=== PATIENT | male | born 1975 | race Caucasian/White ===

== ENCOUNTER → 2020-01-18 07:23 | Outpatient (CLI) | payer MEDICAID, SELFPAY ==
--- NOTE | 2020-01-18 07:27 | MRI_ITS ---
STUDY: MRI LEFT KNEE WITH AND WITHOUT CONTRAST REASON FOR EXAM: Male, 44 years old. Left knee pain. Effusion. Soft tissue mass posteriorly. TECHNIQUE: Standardized fat and water weighted pulse sequences were obtained in all 3 orthogonal planes. Postcontrast evaluation with 20 mL gadolinium. COMPARISON: None. FINDINGS: Patellofemoral articular cartilage is preserved. Medial compartment articular cartilage is preserved. Lateral compartment grade 2 cartilage loss. No acute fracture. No acute dislocation. No acute bone destruction. Medial meniscus intact. Lateral meniscus anterior horn/root ligament degeneration with degenerative tear and midline cyst formation measuring 1.2 cm (sagittal images 16 through 20 series 4). Large volume joint effusion. Large multiseptated nonenhancing popliteal cyst with minimal leaking. Mild soft tissue swelling. Normal medial collateral ligamentous complex (MCL). Normal distal semimembranosus, gracilis and semitendinosus tendons. Normal proximal tibiofibular articulation. Normal lateral collateral (fibular) ligament. Normal popliteus tendon. Normal biceps femoris tendon. Normal anterior cruciate ligament (ACL). Normal posterior cruciate ligament (PCL). Normal medial and lateral patellar retinaculum. Normal quadriceps tendon. Normal patellar tendon. Normal Hoffa''s fat pad. MRI/Lower Ext Joint Only W/WO Cont IMPRESSION: Large multiseptated minimally leaking popliteal cyst Lateral meniscus anterior horn/root degeneration with tear and midline ganglion cyst formation Lateral compartment mild cartilage loss Large volume joint effusion with mild soft tissue swelling Electronically Signed: Jamal Weathers DO at 11:07 EDT Tel , Service support ,
== END ==
PROVIDERS: PCP Family Medicine; Referring Provider Physician Assistant Surgical; Visit Provider Physician Assistant Surgical
DX: S83.282A Other tear of lateral meniscus, current injury, left knee, initial encounter (principal); X58.XXXA Exposure to other specified factors, initial encounter; M71.22 Synovial cyst of popliteal space [Baker], left knee; M67.462 Ganglion, left knee
CPT/HCPCS: 73723; A9575

== ENCOUNTER → 2021-06-21 | Outpatient (REF) | payer SELFPAY | END | disposition home or self-care (01) | LOC: OLS.AHA 04:08 | PROVIDERS: PCP Family Medicine | DX: Z79.899 Other long term (current) drug therapy (principal) | CPT/HCPCS: 82140 ==

== ENCOUNTER → 2021-09-20 | Outpatient (REF) | payer SELFPAY | END | disposition home or self-care (01) | LOC: OLS.AHA 04:49 | PROVIDERS: PCP Family Medicine; Visit Provider Family Medicine | DX: E72.20 Disorder of urea cycle metabolism, unspecified (principal); E87.1 Hypo-osmolality and hyponatremia | CPT/HCPCS: 82140 ==

== ENCOUNTER → 2025-01-10 | Outpatient (CLI) | payer MEDICAID, SELFPAY ==
[2025-01-10 17:19] LABS: Hematocrit 32.9 % (40-54); Hemoglobin 11.6 g/dL (13.0-16.5); Mean Corp Hgb Conc 35.3 g/dL (32-36); Mean Corpuscular Volume 94.0 fL (80-94); Mean Platelet Vol. 10.5 fl (6.2-12.0); Platelet Count 349 K/mm3 (150-450); RBC Distribution Width CV 13.2 % (11.6-14.6); RBC Distribution Width SD 45.8 fl (35.1-43.9); Red Blood Count 3.50 M/mm3 (4.6-6.2); White Blood Count 5.1 K/mm3 (4.4-11.0)
[2025-01-10 17:35] LABS: Anion Gap 10 (5-15); BUN 8 mg/dL (4-19); BUN/Creat Ratio 9.6 RATIO (10-20); Calcium,Total 9.4 mg/dL (7.6-11.0); Carbon Dioxide 22.4 mmol/L (21.0-32.0); Chloride 96 mmol/L (98-108); Cholesterol 118 mg/dL (<=200); Free T3 2.6 pg/mL (2.18-3.98); Glucose 81 mg/dL (70-99); Low Density Lipoprotein Calc. 76 mg/dL; Potassium 4.9 mmol/L (3.3-5.1); Triglycerides 156 mg/dL; Very Low Density Lipoprotein 31 mg/dL (5-40); Vitamin D,25 Hydroxy 59.2 ng/mL (30-100); cholesterol:hdl ratio screen 10.44
--- OUTSIDE RECORDS SUMMARY | 2025-01-10 23:34 | XMS RPT_ITS | CCD ---
Author Organization [facility] Care Team Providers Care Manager Utilization Review Name Role Phone TSERING TENORIO Referring Unavailable TSERING TENORIO Attending Unavailable TSERING TENORIO Admitting Unavailable Allergies Allergy Classification Reported Allergen(s) Allergy Type Date of Onset Reaction(s) Facility (3 sources) Aspirin; Translations: [ASPIRIN] Drug Allergy 09-17-2015 Other [facility] Repository Medications Current Medications Medication Drug Class(es) Dates Sig (Normalized) Sig (Original) acetaminophen 500 mg oral tablet (2 sources) Start: 09-17-19 16 take 650 mg by mouth every four hours as needed Acetaminophen Active 650 MG PO EVERY 4 HOURS NEEDED September 17, 2015 10:57pm amLODIPine 5 mg oral tablet (2 sources) Dihydropyridine Calcium Channel Jermaine Start: 09-18-19 16 take 5 mg by mouth once daily Amlodipine Active 5 MG PO DAILY September 18, 2015 1:14pm atorvastatin 20 mg oral tablet (2 sources) HMG-CoA Reductase Inhibitor Start: 09-17-19 16 take 20 mg by mouth at bedtime Atorvastatin Active 20 MG PO AT BEDTIME September 17, 2015 10:52pm benztropine mesylate 2 mg oral tablet (2 sources) Anticholinergic, Antihistamine Start: 09-17-19 16 take 1 mg by mouth three times daily Benztropine Active 1 MG PO THREE TIMES A DAY September 17, 2015 10:52pm cholecalciferol 0.25 mg oral tablet (2 sources) Vitamin D Start: 09-17-19 16 Cholecalciferol (Vitamin D3) Active 73951 UNIT PO September 17, 2015 10:52pm diphenhydrAMINE hydrochloride 25 mg oral capsule (2 sources) Histamine-1 Receptor Antagonist Start: 09-17-19 16 Diphenhydramine Hcl (Banophen) 25 MG capsule Active 50 MG PO 3 TIMES DAILY NEEDED September 17, 2015 10:57pm LORazepam 2 mg oral tablet (2 sources) Benzodiazepine Start: 09-17-19 16 take 1 tablet by mouth every four hours as needed Lorazepam (Ativan) 2 MG tablet Active 2 MG PO EVERY 4 HOURS NEEDED September 17, 2015 10:57pm medroxyPROGESTERone acetate 5 mg oral tablet (2 sources) Progestin Start: 09-17-19 16 Medroxyprogesterone (Provera) 5 MG tablet Active 5 MG PO September 17, 2015 10:52pm metoprolol tartrate 25 mg oral tablet (2 sources) beta-Adrenergic Jermaine Start: 09-17-19 16 take 25 mg by mouth twice daily Metoprolol Tartrate Active 25 MG PO TWICE A DAY September 17, 2015 10:52pm QUEtiapine 400 mg oral tablet (2 sources) Atypical Antipsychotic Start: 09-17-19 16 take 1 tablet by mouth at bedtime Quetiapine (Seroquel) 400 MG tablet Active 400 MG PO AT BEDTIME September 17, 2015 10:52pm raNITIdine 150 mg oral tablet (2 sources) Histamine-2 Receptor Antagonist Start: 09-17-19 16 take 1 tablet by mouth twice daily Ranitidine (Zantac) 150 MG tablet Active 150 MG PO TWICE A DAY September 17, 2015 10:52pm divalproex sodium 125 mg delayed release oral capsule (4 sources) Mood Stabilizer, Anti-epileptic Agent Start: 09-17-19 16 take 500 mg by mouth twice daily Divalproex Active 500 MG PO TWICE A DAY September 17, 2015 10:52pm Start: 09-17-2015 take 1500 mg by mouth at bedti nc Divalproex Active 1500 MG PO AT BEDTIME September 17, 2015 10:52pm zolpidem tartrate 10 mg oral tablet (2 sources) gamma-Aminobutyric Acid-ergic Agonist Start: 09-17-2015 Zolpidem (Ambien) 10 MG tablet Active 10 MG PO September 17, 2015 10:52pm Completed/Discontinued Medications Medication Drug Class(es) Dates Sig (Normalized) Sig (Original) hydroCHLOROthiazide 25 mg oral tablet (2 sources) Thiazide Diuretic Start: 6 End: 6 take 12.5 mg by mouth twice daily at mealtime Hydrochlorothiazide Discontinued 12.5 MG PO TWICE DAILY WITH MEALS September 17, 2015 10:52pm September 18, 2015 1:14pm Problems Problem Classification Problem Date Documented Da te Episodic/Chronic Delirium, dementia, and amnestic and other cognitive disorders (2 sources) Dementia; Translations: [Unspecified dementia without behavioral disturbance] Chronic Disorders of lipid metabolism (2 sources) Hyperlipidemia; Translations: [Hyperlipidemia, unspecified] Chronic Fluid and electrolyte disorders (2 sources) Hypo-osmolality and or hyponatremia; Translations: [Hypo-osmolality and hyponatremia] Episodic Intracranial injury (2 sources) Traumatic brain injury; Translations: [Unspecified intracranial injury with loss of consciousness of unspecified duration, initial encounter] Episodic Results Test Name Value Interpretation Reference Range Facil ity Ammoniaon 12-24-2021 Ammonia (P) [Moles/Vol] 35.0 umol/L [address] Comment on above: Performed By: #### L 503.5510 #### [facility] [address] [place], [place], [address] Ammoniaon 09-20-2021 Ammonia (P) [Moles/Vol] 48.0 umol/L [address] Comment on above: Performed By: #### L 503.5510 #### [facility] [address] [place], [place], [address] Basophil percentageon 2021 Ammonia (P) [Moles/Vol] 48.0 umol/L [address] [place] [address] Work Phone: Ammoniaon 06-21-2021 Ammonia (P) [Moles/Vol] 61.0 umol/L [address] Comment on above: Performed By: #### L 503.5510 #### [facility] [address] [place], [place], [address] Basophil percentageon 2021 Ammonia (P) [Moles/Vol] 61.0 umol/L [address] [place] [address] Work Phone: Encounters Encounter Date Encounter Type Care Provider Facility Start: 09-20-2021 End: 09-20-2021 Departed Referred [facility] Start: 06-21-2021 Registered Referred [facility] Start: 04-16-2016 End: 04-16-2016 Patient encounter procedure TSERING TENORIO Facility:[facility] Payers Date Payer Category Payer Medicaid [id number] 1975 Unknown [id number] Self-pay SELF PAY INSURANCE [id number] Social History Date Type Detail Facility Start: 09-18-2015 [facility] Work Phone: Start: 1975 Sex Assigned At Male [facility] Work Phone: Evaluation note Note Date & Type Note Facility Evaluation note No assessment information availa ble [facility] Work Phone: Summary Purpose Family History No Family History Records Found Relationship Condition Age at Onset Recorded Date/T rosalina Unknown Family History?No pertinent history Unkno wn September 17, 2015 8:50pm Advance Directives No Advanced Directives Records Found Advance Directive Response Recorded Date/ Time Advance Directives No September 17, 2015 10:21pm Living Will No September 17, 2015 10 :21pm Power of Mid Level Net Developer No September 17, 2015 10:21pm Chief Complaint and Reason for Visit Chief Complaint CORRECTION LABWORK CORRECTION LABWORK Chief Complaint CORRECTION LABWORK Additional Source Comments (unrecognized sect ion and content) No Status Records FoundNo Status Records Found INFORMATION SOURCE (unrecogn ized section and content) DATE CREATED AUTHOR 06/03/2020 [facility] DATE CREATED AUTHOR AUTHOR'S KEO VILLEGAS 01/01/2022 [facility] Goals (unrecognized section and content) Goals may be documented in a n alternate sectionGoals may be documented in an alternate section FOR RECORDS PERTAINING TO PATIENTS WHO ARE OR HAVE BEEN ENROLLED IN A CHEMICAL DEPENDENCY/SUBSTANCEABUSE PROGRAM, SOME INFORMATION MAY BE OMITTED. This clinical summary was aggregated from multiple sources. Caution should be exercised in using it in the provision of clinical care. This summary normalizes information from multiple sources, and as a consequence, information in this document may materially change the coding, format and clinical context of patient data. In addition, data may be omitted in some cases. CLINICAL DECISIONS SHOULD BE BASED ON THE PRIMARY CLINICAL RECORDS. [facility] [employer] [facility]. provides no warranty or guarantee of the accuracy or completeness of information in this document.
== END | disposition home or self-care (01) ==
LOC: LABSPEC 16:11
PROVIDERS: PCP Family Medicine; Referring Provider Family Medicine; Visit Provider Family Medicine
DX: K72.91 Hepatic failure, unspecified with coma (principal); F25.9 Schizoaffective disorder, unspecified; E72.20 Disorder of urea cycle metabolism, unspecified; E87.1 Hypo-osmolality and hyponatremia; E78.2 Mixed hyperlipidemia; Z79.899 Other long term (current) drug therapy
CPT/HCPCS: 80048; 80061; 82306; 84439; 84481; 85027

== ENCOUNTER → 2025-01-17 | Outpatient (CLI) | payer MEDICAID, SELFPAY ==
[2025-01-17 17:21] LABS: Ammonia 60.6 umol/L (16-60)
--- OUTSIDE RECORDS SUMMARY | 2025-01-17 22:50 | XMS RPT_ITS | CCD ---
Author Organization [facility] Care Team Providers Care Flexo Press Operator Name Role Phone TSERING TENORIO Referring Unavailable TSERING TENORIO Attending Unavailable TSERING TENORIO Admitting Unavailable Jose A Marin Referring Unavailable Jose A Marin Attending Unavailable Jose A Marin Primary Care Unavailable Allergies Allergy Classification Reported Allergen(s) Allergy Type Date of Onset Reaction(s) Facility (4 sources) Aspirin; Translations: [ASPIRIN] Drug Allergy 09-17-2015 Other [employer] [facility] [facility] Repository Medications Current Medications Medication Drug [...] daily Amlodipine Active 5 MG PO DAILY 30 September 18, 2015 1:14pm atorvastatin 20 mg [...] Start: 09-17-19 16 Cholecalciferol (Vitamin D3) Active 77261 UNIT PO September 17, 2015 10:52pm diphenhydrAMINE [...] take 1500 mg by mouth at bedti mi Divalproex Active 1500 MG PO AT BEDTIME [...] 1:14pm Problems Problem Classification Problem Date Documented Date Episodic/Chronic Delirium, dementia, and amnestic and other cognitive disorders (2 sources) Dementia; Translations: [Unspecified dementia without behavioral disturbance] Chronic Disorders of lipid metabolism (3 sources) Hyperlipidemia; Translations: [Hyperlipidemia, unspecified] Onset: 01-10-2025 Chronic Fluid and electrolyte disorders (3 sources) Hypo-osmolality and or hyponatremia; Translations: [Hypo-osmolality and hyponatremia] Onset: 01-10-2025 Episodic Intracranial injury (2 sources) Traumatic brain injury; Translations: [Unspecified intracranial injury with loss of consciousness of unspecified duration, initial encounter] Episodic Other aftercare (1 source) Other residential (current) drug therapy; Translations: [Other residential (current) drug therapy] Onset: 01-10-2025 Episodic Other liver diseases (1 source) Hepatic failure, unspecified with coma; Translations: [Hepatic failure, unspecified with coma] Onset: 01-10-2025 Episodic Other nutritional; endocrine; and metabolic disorders (1 source) Disorder of urea cycle metabolism, unspecified; Translations: [Disorder of urea cycle metabolism, unspecified] Onset: 01-10-2025 Chronic Schizophrenia and other psychotic disorders (1 source) Schizoaffective disorder, unspecified; Translations: [Schizoaffective disorder, unspecified] Onset: 01-10-2025 Chronic Results Test Name Value Interpretation Reference Range Facil ity Basic Metabolic Profile (BMP )on 01-10-2025 BUN/CRE 9.6 RATIO Low 10-20 [facility] Comment on above: Performed By: #### L 506.1001, L100.0500, L506.0400, L501.44048, L500.2500, L500.4100 #### [facility] [address] [place], [address] Calcium [Mass/Vol] 9.4 mg/dL Normal 7.6-11.0 [facility] Comment on above: Performed By: #### L 506.1001, L100.0500, L506.0400, L501.55416, L500.2500, L500.4100 #### [facility] [address] [place], [address] Chloride [Moles/Vol] 96 mmol/L Low 98-108 [facility] Comment on above: Performed By: #### L 506.1001, L100.0500, L506.0400, L501.83858, L500.2500, L500.4100 #### [facility] [address] [place], [address] CO2 [Moles/Vol] 22.4 mmol/L Normal 21.0-32.0 [facility] Comment on above: Performed By: #### L 506.1001, L100.0500, L506.0400, L501.03626, L500.2500, L500.4100 #### [facility] [address] [place], [address] Creatinine [Mass/Vol] 0.79 mg/dL Normal 0.70-1.20 [facility] Comment on above: Performed By: #### L 506.1001, L100.0500, L506.0400, L501.96875, L500.2500, L500.4100 #### [facility] [address] [place], [address] GAP 10 Normal 5-15 [facility] Comment on above: Performed By: #### L 506.1001, L100.0500, L506.0400, L501.90422, L500.2500, L500.4100 #### [facility] [address] [place], [address] GFR/1.73 sq M.predicted among non-blacks MDRD (S/P/Bld) [Vol rate/Area] 110 mL/min/{1.73_m2} Normal >60 [facility] Comment on above: Result Comment: mL/m in/1.73m2 CKD-EPI Creatinine Equation (2020) Performed By: #### L 506.1001, L100.0500, L506.0400, L501.98794, L500.2500, L500.4100 #### [facility] [address] [place], [address] Glucose [Mass/Vol] 81 mg/dL Normal 70-99 [facility] Comment on above: Performed By: #### L 506.1001, L100.0500, L506.0400, L501.20923, L500.2500, L500.4100 #### [facility] [address] [place], [address] Potassium [Moles/Vol] 4.9 mmol/L Normal 3.3-5.1 [facility] Comment on above: Performed By: #### L 506.1001, L100.0500, L506.0400, L501.62974, L500.2500, L500.4100 #### [facility] [address] [place], [address] Sodium [Moles/Vol] 129 mmol/L Low 133-145 [facility] Comment on above: Performed By: #### L 506.1001, L100.0500, L506.0400, L501.30514, L500.2500, L500.4100 #### [facility] [address] [place], [address] Urea nitrogen [Mass/Vol] 8 mg/dL Normal 4-19 [facility] Comment on above: Performed By: #### L 506.1001, L100.0500, L506.0400, L501.77300, L500.2500, L500.4100 #### [facility] [address] [place], [address] CBC-Complete Blood Cnt No Di ffon 01-10-2025 Erythrocyte distribution width (RBC) [Ratio] 13.2 % Normal 11.6-14.6 [facility] Comment on above: Result Comment: NO P URPLE TOP SENT FOR THE CBC. Performed By: #### L 506.1001, L100.0500, L506.0400, L501.36186, L500.2500, L500.4100 #### [facility] [address] [place], [address] Hematocrit (Bld) [Volume fraction] 32.9 % Low 40-54 [facility] Comment on above: Result Comment: NO P URPLE TOP SENT FOR THE CBC. Performed By: #### L 506.1001, L100.0500, L506.0400, L501.78228, L500.2500, L500.4100 #### [facility] [address] [place], [address] Hemoglobin (Bld) [Mass/Vol] 11.6 g/dL Low 13.0-16.5 [facility] Comment on above: Result Comment: NO P URPLE TOP SENT FOR THE CBC. Performed By: #### L 506.1001, L100.0500, L506.0400, L501.28370, L500.2500, L500.4100 #### [facility] [address] [place], [address] MCH (RBC) [Entitic mass] 33.1 pg High 27.0-32.0 [facility] Comment on above: Result Comment: NO P URPLE TOP SENT FOR THE CBC. Performed By: #### L 506.1001, L100.0500, L506.0400, L501.10061, L500.2500, L500.4100 #### [facility] [address] [place], [address] MCHC (RBC) [Mass/Vol] 35.3 g/dL Normal 32-36 [facility] Comment on above: Result Comment: NO P URPLE TOP SENT FOR THE CBC. Performed By: #### L 506.1001, L100.0500, L506.0400, L501.27594, L500.2500, L500.4100 #### [facility] [address] [place], [address] MCV (RBC) [Entitic vol] 94.0 fL Normal 80-94 [facility] Comment on above: Result Comment: NO P URPLE TOP SENT FOR THE CBC. Performed By: #### L 506.1001, L100.0500, L506.0400, L501.59388, L500.2500, L500.4100 #### [facility] [address] [place], [address] Platelet mean volume (Bld) [Entitic vol] 10.5 fL Normal 6.2-12.0 [facility] Comment on above: Performed By: #### L 506.1001, L100.0500, L506.0400, L501.89488, L500.2500, L500.4100 #### [facility] [address] [place], [address] Platelets (Bld) [#/Vol] 349 10*3/uL Normal 150-450 [facility] Comment on above: Result Comment: NO P URPLE TOP SENT FOR THE CBC. Performed By: #### L 506.1001, L100.0500, L506.0400, L501.55905, L500.2500, L500.4100 #### [facility] [address] [place], [address] RBC (Bld) [#/Vol] 3.50 10*6/uL Low 4.6-6.2 [facility] Comment on above: Result Comment: NO P URPLE TOP SENT FOR THE CBC. Performed By: #### L 506.1001, L100.0500, L506.0400, L501.30689, L500.2500, L500.4100 #### [facility] [address] [place], [address] RDW SD 45.8 fl High 35.1-43.9 [facility] Comment on above: Result Comment: NO P URPLE TOP SENT FOR THE CBC. Performed By: #### L 506.1001, L100.0500, L506.0400, L501.91098, L500.2500, L500.4100 #### [facility] [address] [place], [address] WBC (Bld) [#/Vol] 5.1 10*3/uL Normal 4.4-11.0 [facility] Comment on above: Result Comment: NO P URPLE TOP SENT FOR THE CBC. Performed By: #### L 506.1001, L100.0500, L506.0400, L501.00100, L500.2500, L500.4100 #### [facility] [address] [place], [address] Free T3on 01-10-2025 Free T3 [Mass/Vol] 2.6 pg/mL Normal 2.18-3.98 [facility] Comment on above: Performed By: #### L 506.1001, L100.0500, L506.0400, L501.72686, L500.2500, L500.4100 #### [facility] [address] [place], [address] Lipid Profileon 01-10-2025 CHOL:HDL 10.44 Normal [facility] Comment on above: Performed By: #### L 506.1001, L100.0500, L506.0400, L501.07881, L500.2500, L500.4100 #### [facility] [address] [place], [address] Cholesterol [Mass/Vol] 118 mg/dL Normal <=200 [facility] Comment on above: Result Comment: Chol esterol level, Desirable <200 mg/dL Borderline high cholesterol 200-239 mg/dL High cholesterol >=240 mg/dL Recommendations of the NCEP Adult Treatment Panel for the following risk-cutoff thresholds for the [place] population. Performed By: #### L 506.1001, L100.0500, L506.0400, L501.96320, L500.2500, L500.4100 #### [facility] [address] [place], [address] Cholesterol in HDL [Mass/Vol] 11 mg/dL Low [facility] Comment on above: Result Comment: Leanne onal Cholesterol Education Program (NCEP) guidelines: <40 mg/dL: Low HDL-cholesterol (major risk factor for CHD) >= 60 mg/dL: High HDL-cholesterol (negative risk factor for CHD) HDL-cholesterol is affected by a number of factors, e.g. smoking, exercise, hormones, sex and age. Performed By: #### L 506.1001, L100.0500, L506.0400, L501.07908, L500.2500, L500.4100 #### [facility] [address] [place], [address] Cholesterol in LDL [Mass/Vol] 76 mg/dL Normal [facility] Comment on above: Result Comment: Bord gxfjsq=916-333 mg/dL Higher Vqdk=808 mg/dL or greater Friedwald Equation for LDL-C Performed By: #### L 506.1001, L100.0500, L506.0400, L501.18765, L500.2500, L500.4100 #### [facility] [address] [place], [address] Cholesterol in VLDL [Mass/Vol] 31 mg/dL Normal 5-40 [facility] Comment on above: Performed By: #### L 506.1001, L100.0500, L506.0400, L501.81095, L500.2500, L500.4100 #### [facility] [address] [place], [address] Triglyceride [Mass/Vol] 156 mg/dL Normal [facility] Comment on above: Result Comment: The drugs N-Acetylcysteine and Metamizole may falsely depress this assay. Normal range: <150 mg/dL Borderline High: 150-199 mg/dL High: 200-499 mg/dL Very High: >500 mg/dL Performed By: #### L 506.1001, L100.0500, L506.0400, L501.33858, L500.2500, L500.4100 #### [facility] [address] [place], [address] T4 Free Directon 01-10-2025 T4 FREE DIRECT 0.90 ng/dL Normal 0.76-1.46 [facility] Comment on above: Performed By: #### L 506.1001, L100.0500, L506.0400, L501.23341, L500.2500, L500.4100 #### [facility] [address] [place], [address] Vitamin D,25 Hydroxyon 01-10 Vitamin D 25-OH 59.2 ng/mL Normal 30-100 [facility] Comment on above: Result Comment: Bernie min D Status Deficiency: <20 ng/mL (50nmol/L) Insufficiency: 20-30 ng/mL (50-75 nmol/L) Sufficiency: 30-100 ng/mL (75-250 nmol/L) Toxicity: >100 ng/mL (>250 nmol/L) Performed By: #### L 506.1001, L100.0500, L506.0400, L501.92845, L500.2500, L500.4100 #### [facility] [address] [place], [address] Basophil percentageon 2021 Ammonia (P) [Moles/Vol] 48.0 umol/L [facility] Work Phone: Basophil percentageon 2021 Ammonia (P) [Moles/Vol] 61.0 umol/L [facility] Work Phone: Encounters Encounter Date Encounter Type Care Provider Facility Start: 01-10-2025 ambulatory Jose A Tania Facility: [facility] Start: 09-20-2021 End: 09-20-2021 Departed Referred [facility] Start: 06-21-2021 Registered Referred [facility] Start: 04-16-2016 End: 04-16-2016 Patient encounter procedure FARHEEN. BRADANANTH Facility:[facility] Payers Date Payer Category Payer Self-pay [id number] 2016 Medicaid [id number] 1975 Unknown [id number] Unknown [id number] Social History Date Type Detail Facility Start: 09-18-2015 Tobacco smoking stat [facility] Unknown if ever smoked [facility] Work Phone: Start: 1975 Sex Assigned At Male W [facility] Work Phone: Evaluation note Note Date & Type Note Facility Evaluation note No assessment information availa ble [facility] Work Phone: Summary Purpose Family History No Family History Records Found Relationship Condition Age at Onset Recorded Date/T rosalina Unknown Family History?No pertinent history Unkno wn September 17, 2015 8:50pm Advance Directives No Advanced Directives Records Found Advance Directive Response Recorded Date/ Time Advance Directives No September 17, 2015 10:21pm Living Will No September 17, 2015 10 :21pm Power of Feed Blender No September 17, 2015 10:21pm Chief Complaint and Reason for Visit Chief Complaint RETIREMENT LABWORK RETIREMENT LABWORK Chief Complaint RETIREMENT LABWORK Additional Source Comments (unrecognized sect ion and content) No Status Records FoundNo Status Records Found INFORMATION SOURCE (unrecogn ized section and content) DATE CREATED AUTHOR 06/03/2020 [employer] [facility] DATE CREATED AUTHOR AUTHOR'S KEO VILLEGAS 01/11/2025 [facility] Goals (unrecognized section and content) Goals [...] BE BASED ON THE PRIMARY CLINICAL RECORDS. [facility]. provides no warranty or guarantee of the accuracy or completeness of information in this document.
== END | disposition home or self-care (01) ==
LOC: LABSPEC 16:46
PROVIDERS: PCP Family Medicine; Referring Provider Family Medicine; Visit Provider Family Medicine
DX: E72.20 Disorder of urea cycle metabolism, unspecified (principal)
CPT/HCPCS: 82140